=== PATIENT | male | born 1970 | race Caucasian/White ===

== ENCOUNTER 2016-12-19 00:29 | Emergency (ER) | payer SELFPAY ==
[~2016-12-19] VITALS: Ht 188 cm; Wt 125.0 kg
[~2016-12-19 00:29] MED LIST: IBUP-238 PO
[2016-12-19 00:41] VITALS: BP 149/112; PULSE 112; RESP 18; TEMP 98.6; O2SAT 94
[2016-12-19 00:56] VITALS: BP 151/80; PULSE 100; RESP 18; O2SAT 94
[2016-12-19] MEDS ORDERED: BACT800T5 PO (01:40)
[2016-12-19] MEDS ORDERED: DOXY100C PO (01:40)
--- NOTE | 2016-12-19 01:43 | PD ---
HPI Chief Complaint: Skin Problem Time Seen by Provider: :17 Travel History International Travel<30 days: No Contact w/Intl Traveler<30days: No Traveled to known affect area: No History of Present Illness HPI The patient is a 46-year-old male that complains of multiple skin infection "boils" on his back and groin for over week. He really has some all over his body but these are the worst ones. He denies any fever. He denies any history of diabetes. 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 His last tetanus shot was when he was age 19. [facility] Past Medical History Medical History: Denies Significant Hx Diminished Hearing: No Tetanus Vaccination: < 5 Years Influenza Vaccination: No Past Surgical History Abdominal Surgery: Yes (HERNIA REPAIR X 2) Social History Alcohol Use: Yes (OCC) Tobacco Use: Yes (1 PPD) Substance Use: No (DENIES) Allergies-Medications (Allergen,Severity, Reaction): Coded Allergies: No Known Allergies (Verified , 12/19/16) Reported Meds & Prescriptions Reported Meds & Active Scripts Active No Active Prescriptions or Reported Medications Review of Systems Except as stated in HPI: all other systems reviewed are Neg Physical Exam Narrative GENERAL: The patient is alert, oriented 3 in minimal apparent distress with his abscess pain. His vital signs show blood pressure 151/80 with heart rate of 100 and are otherwise normal. SKIN: Focused skin assessment warm/dry. The patient has multiple abscesses. The largest is on the right groin and this is draining without any fluctuance. He also has about 5 to abscesses on his buttocks, none of which are large enough or mature enough to drain. The skin shows on the shoulders and back multiple lesions which appear to be staphylococcal. None of these are requiring incision and drainage. HEAD: Atraumatic. Normocephalic. EYES: Pupils equal and round. No scleral icterus. No injection or drainage. ENT: No nasal bleeding or discharge. Mucous membranes pink and moist. NECK: Trachea midline. No JVD. CARDIOVASCULAR: Regular rate and rhythm. No murmur appreciated. RESPIRATORY: No accessory muscle use. Clear to auscultation. Breath sounds equal bilaterally. GASTROINTESTINAL: Abdomen soft, non-tender, nondistended. Hepatic and splenic margins not palpable. MUSCULOSKELETAL: No obvious deformities. No clubbing. No cyanosis. No edema. NEUROLOGICAL: Awake and alert. No obvious cranial nerve deficits. Motor grossly within normal limits. Normal speech. PSYCHIATRIC: Appropriate mood and affect; insight and judgment normal. Data Data Last Documented VS Vital Signs Date Time Temp Pulse Resp B/P (MAP) Pulse Ox O2 Delivery O2 Flow Rate FiO2 12/19/16 00:56 100 18 151/80 (103) 94 Room Air 12/19/16 00:41 98.6 MDM Medical Decision Making Medical Screen Exam Complete: Yes Emergency Medical Condition: Yes Medical Record Reviewed: Yes Differential Diagnosis MRSA abscesses, cellulitis, allergic reaction Narrative Course The patient has multiple abscesses which are likely caused by MRSA. He will be given both doxycycline and Bactrim DS. Both will be twice daily for 10 days. He is also given a bottle of Betadine so that he can bathe and Betadine and reduce some of his bacteria on the skin. He should soak at least twice daily in warm water the abscess is on the buttocks and groin. Alternatively, he can take a shower and trained the water on these areas. Diagnosis Primary Impression: Abscess of multiple sites Additional Instructions: As we discussed, discontinue alcohol and sit in a tub of warm water at least 30 minutes twice daily so that the abscesses on her buttocks and groin get a good soaking. Use several capfulls of Betadine in the bath water. Both of the antibiotics are taken twice daily for 10 days. Med/Other Pt SpecificInfo: Prescription(s) given Scripts Doxycycline Hyclate (Doxycycline Hyclate) 100 Mg Cap 100 MG PO BID for Infection, #20 CAP 0 Refills Prov: Ignacio Viera MD 12/19/16 Sulfamethoxazole-Trimethoprim (Bactrim DS) 800-160 Mg Tab 1 TAB PO BID for Infection, #20 TAB 0 Refills Prov: Ignacio Viera MD 12/19/16 Disposition: DISCHARGE HOME Condition: Stable Ignacio Viera MD Dec 19, 2016 01:43
[2016-12-19] MEDS ORDERED: TETANUS/DIPHTHERIA TOXOID ADULT 0.5 ML VIAL IM ONE (01:45)
== END 2016-12-19 02:04 | disposition home or self-care (01) ==
LOC: PHED 00:29
DX: L02.31 Cutaneous abscess of buttock (principal); B95.0 Streptococcus, group A, as the cause of diseases classified elsewhere; F17.200 Nicotine dependence, unspecified, uncomplicated; Z23 Encounter for immunization
CPT/HCPCS: 87070; 90471; 90714

== ENCOUNTER 2017-03-21 23:18 | Emergency (ER) | payer SELFPAY ==
[~2017-03-21] VITALS: Ht 188 cm; Wt 125.0 kg
[~2017-03-21 23:18] MED LIST changes: +BACT800T5 PO; +DOXY100C PO; -IBUP-238 PO
[2017-03-21 23:20] VITALS: BP 149/83; PULSE 114; RESP 18; TEMP 98.4; O2SAT 95
[2017-03-21] MEDS ORDERED: LIDOCAINE 2%/EPINEPHrine 1:100,000 20ML MDV NERV BLOCK ONE (23:45)
[2017-03-21] MEDS ORDERED: LIDOCAINE 1%/EPINEPHrine 1:100,000 SOLN 50 ML VIAL INFIL ONE (23:45)
--- NOTE | 2017-03-21 23:47 | PD ---
HPI . Foot pain Chief Complaint: Injury Time Seen by Provider: 23:29 Travel History International Travel<30 days: No Contact w/Intl Traveler<30days: No Traveled to known affect area: No History of Present Illness HPI This patient presents with left foot pain for the last 5 months. He states that he presents to us about it tonight because he spent the day at [employer] and it is very painful tonight. He states that he has treated it at home with a plantar wart removal system. He rates the pain 10/10. PFSH Past Medical History Diminished Hearing: No Past Surgical History Abdominal Surgery: Yes (HERNIA REPAIR X 2) Social History Alcohol Use: Yes (OCC) Tobacco Use: Yes (1 PPD) Substance Use: No (DENIES) Allergies-Medications (Allergen,Severity, Reaction): Coded Allergies: No Known Allergies (Verified Adverse Reaction, Unknown, 03/21/17) Reported Meds & Prescriptions Reported Meds & Active Scripts Active No Active Prescriptions or Reported Medications Review of Systems Except as stated in HPI: all other systems reviewed are Neg Physical Exam Narrative GENERAL: Awake and alert and in no acute distress. SKIN: Warm and dry. He has an area of hyperkeratotic skin on the plantar aspect of the left foot near the fifth MTP joint. HEAD: Normocephalic/atraumatic. EYES: Pupils are equal. Extraocular movements are intact. NECK: Normal range of motion. CARDIOVASCULAR: Regular rate and rhythm. RESPIRATORY: Nonlabored respirations. MUSCULOSKELETAL: Atraumatic. NEUROLOGICAL: Nonfocal. PSYCHIATRIC: Appropriate mood and affect. Data Data Last Documented VS Vital Signs Date Time Temp Pulse Resp B/P (MAP) Pulse Ox O2 Delivery O2 Flow Rate FiO2 03/21/17 23:43 Room Air 03/21/17 23:20 98.4 114 18 149/83 (105) 95 Orders Orders Lidocai-Epi 2%-1:100,000 Inj (Xylocaine- (03/21/17 23:45) Lidocai-Epi 1%-1:100,000 Inj (Xylocaine- (03/21/17 23:45) MDM Medical Decision Making Medical Screen Exam Complete: Yes Emergency Medical Condition: Yes Differential Diagnosis Differential diagnosis includes callus versus plantar wart Narrative Course This patient presents with a painful lesion on the plantar aspect of his left foot. I will anesthetize the area and core it out. Procedures Procedure Narrative The area was prepped with rubbing alcohol then also anesthetized with 2 % lidocaine with epi. The area of hyperkeratinized skin was then excised using a #11 blade and a cone like fashion. He tolerated the procedure well without complication. Diagnosis Primary Impression: Plantar wart of left foot Referrals: Joaquin Colorado DPM Patient Instructions: General Instructions, Plantar Wart (DC) Scripts No Active Prescriptions or Reported Meds Disposition: 01 DISCHARGE HOME Condition: Stable Cindy Brown MD Mar 21, 2017 23:47
== END 2017-03-22 00:09 | disposition home or self-care (01) ==
LOC: NEPD 23:18
DX: B07.0 Plantar wart (principal); F17.200 Nicotine dependence, unspecified, uncomplicated
CPT/HCPCS: 17110

== ENCOUNTER 2017-06-19 06:45 | Emergency (ER) | payer SELFPAY ==
[~2017-06-19] VITALS: Ht 195.6 cm; Wt 104.5 kg
[2017-06-19 06:55] VITALS: BP 139/81; PULSE 102; RESP 16; TEMP 97.9; O2SAT 95
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
[2017-06-19] MEDS ORDERED: KETOROLAC TROMETHAMINE 60 MG/2 ML (IM) VIAL IM ONE (07:15)
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
[2017-06-19] MEDS ORDERED: AUGM500T7 PO (08:49)
[2017-06-19 09:55] VITALS: BP 129/79; PULSE 94; RESP 14; O2SAT 100
== END 2017-06-19 09:55 | disposition home or self-care (01) ==
LOC: PHED 06:45
DX: S02.32XA Fracture of orbital floor, left side, initial encounter for closed fracture (principal); S02.2XXA Fracture of nasal bones, initial encounter for closed fracture; F10.129 Alcohol abuse with intoxication, unspecified; F17.200 Nicotine dependence, unspecified, uncomplicated; Y04.2XXA Assault by strike against or bumped into by another person, initial encounter
CPT/HCPCS: 70450; 70486; 96372; 99285; J1885

== ENCOUNTER 2017-07-11 00:32 | Emergency (ER) | payer SELFPAY ==
[~2017-07-11 00:32] MED LIST changes: +AUGM500T7 PO; -BACT800T5 PO; -DOXY100C PO
[2017-07-11 00:35] VITALS: BP 142/93; PULSE 111; RESP 18; TEMP 97.3; O2SAT 96
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
[2017-07-11] MEDS ORDERED: PROPARACAINE HCL 0.5% OPHT SOLN 15 ML BTL EACH EYE ONE (01:15)
== END 2017-07-11 01:56 | disposition home or self-care (01) ==
LOC: NEPD 00:32
DX: H57.12 Ocular pain, left eye (principal); F17.200 Nicotine dependence, unspecified, uncomplicated
CPT/HCPCS: 99283

== ENCOUNTER 2017-11-02 22:13 | Inpatient (IN) ==
[2017-11-02] MEDS ORDERED: Morphine Sulfate Inj 8 MG/ML Vial IV.PUSH ONE (23:40)
[2017-11-02] MEDS ORDERED: SOD CHLORIDE 0.9% IV.SIG SCH (23:45)
[2017-11-02] MEDS ORDERED: Sod Chloride 0.9% Inj 1,000 ML IV.SIG SCH ×3 (23:45)
[2017-11-03 00:21] LABS: Baso % (Auto) 0.1 % (0.0-2.0); Eos # (Auto) 0.1 th/mm3 (0.0-0.4); Eos % (Auto) 0.3 % (0.0-4.0); Hematocrit 50.2 % (39.0-51.0); Hemoglobin 17.9 gm/dL (13.0-17.0); Lymph # (Auto) 0.7 th/mm3 (1.0-4.8); Lymph % (Auto) 3.9 % (9.0-44.0); Mean Corpuscular HGB Conc 35.6 % (32.0-36.0); Mean Corpuscular Hemoglobin 33.6 pg (27.0-34.0); Mean Corpuscular Volume 94.5 fL (80.0-100.0); Mean Platelet Volume 9.1 fL (7.0-11.0); Mono # (Auto) 0.6 th/mm3 (0.0-0.9); Mono % (Auto) 3.2 % (0.0-8.0); Neut # (Auto) 17.1 th/mm3 (1.8-7.7); Neut % (Auto) 92.5 % (16.0-70.0); Platelet Count 272 th/mm3 (150-450); Red Blood Count 5.32 mil/mm3 (4.50-5.90); Red Cell Distribution Width 13.2 % (11.6-17.2); White Blood Count 18.5 th/mm3 (4.0-11.0)
--- NOTE | 2017-11-03 00:34 | XR ---
EXAM DATE: 11/03/2017 12:13 AM EDT AGE/SEX: 47 years / Male INDICATIONS: Fever for 2 days CLINICAL DATA: This is the patient's initial encounter. Patient reports that signs and symptoms have been present for 2 days and indicates a pain score of 0/10. MEDICAL/SURGICAL HISTORY: None. None. COMPARISON: No prior exams available for comparison. FINDINGS: Portable AP view of the chest demonstrates a normal size cardiac silhouette. Lungs are underinflated with atelectasis at the lung bases. No pleural effusion, airspace consolidation, or pneumothorax is i dentified. There is a questionable 9 mm nodule in the left upper lung zone. The bones and soft tissue s demonstrate no acute abnormality. CONCLUSION: 1. No acute cardiopulmonary abnormality is identified. 2. Questionable 9 mm nodule in the left upper lung zone. If the prior studies cannot be obtained for comparison consider elective follow-up with noncontrast chest CT. Electronically signed by: Baltazar Benedict MD 11/03/2017 12:32 AM EDT
[2017-11-03 00:39] LABS: Chloride 96 meq/L (98-107); Potassium 3.5 meq/L (3.5-5.1); Sodium 132 meq/L (136-145)
[2017-11-03 00:43] LABS: Albumin 3.7 g/dL (3.4-5.0); Anion Gap 11 meq/L (5-15); Calcium 8.7 mg/dL (8.5-10.1); Carbon Dioxide 25.4 meq/L (21.0-32.0); Glucose,Random 154 mg/dL (74-106)
[2017-11-03 00:44] LABS: Blood Urea Nitrogen 10 mg/dL (7-18)
[2017-11-03 00:46] LABS: Alanine Aminotransferase 53 U/L (12-78); Aspartate Aminotransferase 52 U/L (15-37); Glomerular Filtration Rate Greater Than 89 mL/min (>89)
[2017-11-03 00:48] LABS: Total Protein 8.2 g/dL (6.4-8.2)
[2017-11-03 00:49] LABS: Alkaline Phosphatase 101 U/L (45-117); Creatine Kinase 260 U/L (39-308); Lipase 18104 U/L (73-393)
[2017-11-03 01:02] LABS: Creatine Kinase MB 1.5 ng/mL (0.5-3.6)
[2017-11-03] MEDS ORDERED: Morphine Inj 4 MG, Morphine Inj 2 MG IV.PUSH ONE ×2 (01:12)
[2017-11-03] MEDS ORDERED: Piperacil/Tazo 4.5 GM Premix 4.5 GM/100 ML BAG IV.SIG ONE (01:14)
--- NOTE | 2017-11-03 01:15 | ED ---
HPI General Chief Complaint: Abdominal Pain Stated Complaint: abd pain/vomiting Time Seen by Provider: 11/02/17 22:40 Source: patient Mode of arrival: ambulatory Limitations: no limitations History of Present Illness HPI narrative: 47-year-old male who presents with several days of increasing generalized abdominal pain. Per his report it started periumbilical region and has since generalized throughout his abdomen. The pain is so bad that he holds his abdominal musculature very rigid. He denies shortness of breath or chest pain. No fevers or chills at home. Very nauseated with multiple episodes of emesis today up to 6 per his count. No diarrhea, no blood in stool, no dark tarry stools. He is unable to tolerate any liquids or food today. Patient denies alcohol or drug use. No prior history of pancreatitis. MD complaint: abdominal pain Onset (ago): day(s) Pain Consistency: constant Location: diffuse Severity: severe Severity scale (1-10): 10 Quality: cramping and stabbing Relieving factors: nothing Exacerbating factors: movement Associated symptoms: nausea and vomiting Related Data Home Medications Medication Instructions Recorded Confirmed No Known Home Medications 10/15/17 11/02/17 Allergies Allergy/AdvReac Type Severity Reaction Status Date / Time No Known Allergies Allergy Verified 11/02/17 22:18 Review of Systems ROS: all other systems reviewed are negative Constitutional Denies chills and Denies fever(s) Gastrointestinal Reports abdominal pain, Denies melena, Reports cramping, Denies loose stools, Reports nausea and Reports vomiting PMFSH Medical History Medical History Patient denies medical problems (Acute) Surgical History Surgical History History of hernia surgery (Acute) Social History Social History Substance History: No History of Abuse Smoking Status: Current every day smoker Tobacco Type: Cigarettes How Often Do You Have a Drink Containing Alcohol: 4 or more times a week Recent Travel in [facility] within the Last 8 Weeks: No Recent Out of Country Travel within the Last 8 Weeks: No Immunization History Tetanus Immunization: <5 Years Hx Influenza Vaccine This Season: No Exam Narrative Exam Narrative: GENERAL: 47-year-old obese male sitting upright on stretcher with wet towels draped on back of neck appears in moderate distress from discomfort. SKIN: Focused skin assessment warm/dry. No rash. No periumbilical or flank bruising. HEAD: Atraumatic. Normocephalic. EYES: Pupils equal and round. No scleral icterus. No injection or drainage. ENT: No nasal bleeding or discharge. Mucous membranes pink and moist. NECK: Trachea midline. No JVD. CARDIOVASCULAR: Tachycardic rate and normal rhythm. No murmur appreciated. RESPIRATORY: No accessory muscle use. Clear to auscultation. Breath sounds equal bilaterally. GASTROINTESTINAL: Generalized abdominal tenderness with involuntary guarding, no rebound tenderness, no palpable hernia. Hepatic and splenic margins not palpable. MUSCULOSKELETAL: No obvious deformities. No clubbing. No cyanosis. No edema. NEUROLOGICAL: Awake and alert. No obvious cranial nerve deficits. Motor grossly within normal limits. Normal speech. PSYCHIATRIC: Appropriate mood and affect; insight and judgment normal. Course Reevaluation(s) Reevaluation #1: Reevaluated patient at this time his pain is significantly improved but returning at this time and he request a second dose of morphine which I ordered for him. His heart rate is improved compared to arrival is now 136 bpm versus 150 in triage. Although patient is hesitant to be admitted I advised him it is the best course of action given his persistently elevated heart rate and his biochemically obvious pancreatitis; I told him that pancreatitis has the potential for significant adverse consequences if not addressed. He agrees and will sent to admission. He is still pending CT abdomen pelvis. Due to elevated lactic acid I will provide him a 30 cc a kilogram bolus of normal saline as per sepsis protocol. Will also cover with 1 dose of Zosyn in the ED. However believe that sepsis and/or bacteremia is less likely than acute pancreatitis with early SIRS. Time: 12:46 Reevaluation #2: Conferred with patient's bedside nurse and charge nurse regarding the care of this patient. Explained to them that due to his elevated lactic acid we will need to give the patient the entire 30 cc a kilo bolus as per [facility] sepsis protocol. Told them that it would be okay to slow the rate of the remaining fluid. Also fixed order for 6 mg IV morphine which was erroneously ordered as a split order. Patient is still awaiting CT. At this time the PACS system is down for radiology and therefore reads are Time: 01:30 Reevaluation #3: Patient is resting quietly in dark room at time of re- evaluation. His pain is well controlled at this time. Heart rate is improving and is now 125 BPM. Patient remains normotensive. Page out to hospitalist for admission. Time: 03:05 Initial Documented Vital Signs Temperature 98 F 11/02/17 22:18 Pulse Rate 150 H 11/02/17 22:18 Respiratory Rate 20 11/02/17 22:18 Blood Pressure 165/105 H 11/02/17 22:18 Pulse Oximetry 100 11/02/17 22:18 Last Documented Vital Signs Temperature 98 F 11/02/17 22:18 Pulse Rate 118 H 11/03/17 07:17 Respiratory Rate 18 11/03/17 07:17 Blood Pressure 140/80 11/03/17 07:17 Pulse Oximetry 93 L 11/03/17 07:17 Critical Care Time Critical Care Time: Yes Total Critical Care Time: 45 Attestation: Time necessary for treatment of severe pancreatitis. Patient exhibiting signs of early shock as evidenced by persistently high rate of tachycardia. This is most likely signs of early SIRS secondary to his pancreatitis. My constant attention and close care was necessary for treatment of this critically ill patient. Aggregate critical care time was 45 minutes. Time to perform other separately billable procedures was not included in the critical care time. My time did not include minutes spent treating any other patients simultaneously or on activities that did not directly contribute to the patient's treatment. The services I provided to this patient were to treat and/or prevent clinically significant deterioration that could result in: Worsening shock, circulatory collapse, sepsis, endocrine disorder. I provided critical care services requiring my management, as noted below: Chart data review, documentation time, medication orders and management, vital sign assessments/reviewing monitor data, ordering and reviewing lab tests, ordering and interpreting/reviewing x-rays and diagnostic studies, care of the patient and discussion of the patient with the admitting physicians. Medical Decision Making MDM Narrative Medical decision making narrative: Patient presents with signs and symptoms of peritonitis, chiefly involuntary guarding on exam and generalized abdominal tenderness. He also has a fast rate of sinus tachycardia; I will attempt to volume replete the patient with normal saline boluses as I believe his tachycardia is a sign of early shock. The likely etiology is pancreatitis or intra-abdominal infection. Though he is afebrile, bacteremia or sepsis is a possible cause of his signs and symptoms and therefore will treat patient has sepsis alert. We will give initial dose of IV Zosyn in ED for broad coverage that includes gut pathogens, gram-negative organisms and anaerobes. Also consider aortic dissection or ruptured AAA, although I believe these are less likely pancreatitis or intra-abdominal infection. Differential Diagnosis Differential Diagnosis: Pancreatitis versus early shock versus perforated viscus versus GI bleed versus bacteremia versus sepsis of unknown etiology versus ruptured AAA (less likely) versus aortic dissection (less likely) versus ACS (unlikely). Medical Records Medical records reviewed: Yes I reviewed the patient's medical records. Lab Data Lab results reviewed: Yes I reviewed the patient's lab results. Lab results narrative: Lab results consistent with acute pancreatitis white count elevation may be reactive but in the setting could very well also be a sign of infection. Glucose is moderately elevated which is fitting with pancreatitis but is also also a possible the patient has untreated type 2 diabetes. His lactic acid is moderately elevated and therefore we will plan to recheck after fluid bolus. Will order patient 30 cc a kilogram bolus of normal saline per centimeter mass sepsis guideline. Result diagrams: 11/02/17 00:00 11/02/17 00:00 Lab Results 11/02/17 11/02/17 11/02/17 Range/Units 00:00 00:00 00:00 CBC w Diff Slide review pending WBC 18.5 H (4.0-11.0) th/mm3 RBC 5.32 (4.50-5.90) mil/mm3 Hgb 17.9 H (13.0-17.0) gm/dL Hct 50.2 (39.0-51.0) % MCV 94.5 (80.0-100.0) fL MCH 33.6 (27.0-34.0) pg MCHC 35.6 (32.0-36.0) % RDW 13.2 (11.6-17.2) % Plt Count 272 (150-450) th/mm3 MPV 9.1 (7.0-11.0) fL Neut % (Auto) 92.5 H (16.0-70.0) % Lymph % (Auto) 3.9 L (9.0-44.0) % [place] % (Auto) 3.2 (0.0-8.0) % Eos % (Auto) 0.3 (0.0-4.0) % Baso % (Auto) 0.1 (0.0-2.0) % Neut # (Auto) 17.1 H (1.8-7.7) th/mm3 Lymph # (Auto) 0.7 L (1.0-4.8) th/mm3 [place] # (Auto) 0.6 (0.0-0.9) th/mm3 Eos # (Auto) 0.1 (0.0-0.4) th/mm3 Baso # (Auto) 0.0 (0.0-0.2) th/mm3 WBC Differential . Diff Scan Auto diff confirmed Differential Comment . Sodium 132 L (136-145) meq/L Potassium 3.5 (3.5-5.1) meq/L Chloride 96 L (98-107) meq/L Carbon Dioxide 25.4 (21.0-32.0) meq/L Anion Gap 11 (5-15) meq/L BUN 10 (7-18) mg/dL Creatinine 0.71 (0.60-1.30) mg/dL Estimated GFR Greater than 89 (>89) mL/min POC Glucose (68-110) mg/dl Random Glucose 154 H (74-106) mg/dL Lactic Acid 2.5 H (0.4-2.0) mmol/L Calcium 8.7 (8.5-10.1) mg/dL Total Bilirubin 1.3 H (0.2-1.0) mg/dL AST 52 H (15-37) U/L ALT 53 (12-78) U/L Alkaline Phosphatase 101 (45-117) U/L Total Creatine Kinase 260 (39-308) U/L CK-MB (CK-2) 1.5 (0.5-3.6) ng/mL Troponin I Less than 0.02 L (0.02-0.05) ng/mL Total Protein 8.2 (6.4-8.2) g/dL Albumin 3.7 (3.4-5.0) g/dL Lipase 47436 H (73-393) U/L Urine Color (Yellw/Straw) Urine Clarity (Clear) Urine pH (5.0-8.5) Ur Specific Stanley (1.002-1.035) Urine Protein (Neg-Trace) mg/dL Urine Glucose (UA) (Negative) mg/dL Urine Ketones (Negative) mg/dL Urine Occult Blood (Negative) Urine Nitrate (Negative) Urine Bilirubin (Negative) Urine Urobilinogen (Less than 2) mg/dL Ur Leukocyte Esterase (Negative) Urine RBC (0-3) /hpf Urine WBC (0-5) /hpf Ur Squamous Epith Cells (0-5) /hpf Micro UA Comment Urine Culture Comments 11/03/17 11/03/17 11/03/17 Range/Units 01:43 03:40 05:50 CBC w Diff WBC (4.0-11.0) th/mm3 RBC (4.50-5.90) mil/mm3 Hgb (13.0-17.0) gm/dL Hct (39.0-51.0) % MCV (80.0-100.0) fL MCH (27.0-34.0) pg MCHC (32.0-36.0) % RDW (11.6-17.2) % Plt Count (150-450) th/mm3 MPV (7.0-11.0) fL Neut % (Auto) (16.0-70.0) % Lymph % (Auto) (9.0-44.0) % [place] % (Auto) (0.0-8.0) % Eos % (Auto) (0.0-4.0) % Baso % (Auto) (0.0-2.0) % Neut # (Auto) (1.8-7.7) th/mm3 Lymph # (Auto) (1.0-4.8) th/mm3 [place] # (Auto) (0.0-0.9) th/mm3 Eos # (Auto) (0.0-0.4) th/mm3 Baso # (Auto) (0.0-0.2) th/mm3 WBC Differential Diff Scan Differential Comment Sodium (136-145) meq/L Potassium (3.5-5.1) meq/L Chloride (98-107) meq/L Carbon Dioxide (21.0-32.0) meq/L Anion Gap (5-15) meq/L BUN (7-18) mg/dL Creatinine (0.60-1.30) mg/dL Estimated GFR (>89) mL/min POC Glucose 152 H (68-110) mg/dl Random Glucose (74-106) mg/dL Lactic Acid 1.3 (0.4-2.0) mmol/L Calcium (8.5-10.1) mg/dL Total Bilirubin (0.2-1.0) mg/dL AST (15-37) U/L ALT (12-78) U/L Alkaline Phosphatase (45-117) U/L Total Creatine Kinase (39-308) U/L CK-MB (CK-2) (0.5-3.6) ng/mL Troponin I (0.02-0.05) ng/mL Total Protein (6.4-8.2) g/dL Albumin (3.4-5.0) g/dL Lipase (73-393) U/L Urine Color Wilkin H (Yellw/Straw) Urine Clarity Slightly cloudy (Clear) Urine pH 6.0 (5.0-8.5) Ur Specific Stanley Less/equal 1.005 (1.002-1.035) Urine Protein 100 H (Neg-Trace) mg/dL Urine Glucose (UA) Negative (Negative) mg/dL Urine Ketones Negative (Negative) mg/dL Urine Occult Blood Trace (Negative) Urine Nitrate Negative (Negative) Urine Bilirubin Negative (Negative) Urine Urobilinogen 0.2 (Less than 2) mg/dL Ur Leukocyte Esterase Negative (Negative) Urine RBC 0-3 (0-3) /hpf Urine WBC 0-5 (0-5) /hpf Ur Squamous Epith Cells 0-5 (0-5) /hpf Micro UA Comment Culture not ind Urine Culture Comments Culture not ind Imaging Data Radiologist's impression: Chest X-Ray 11/02/17 23:43 CONCLUSION: 1. No acute cardiopulmonary abnormality is identified. 2. Questionable 9 mm nodule in the left upper lung zone. If the prior studies cannot be obtained for comparison consider elective follow-up with noncontrast chest CT. Abdomen/Pelvis CT 11/03/17 00:37 CONCLUSION: 1. Peripancreatic inflammatory changes which extend into the small bowel mesentery. There is also a small volume of free fluid in the pelvis. These findings are characteristic of acute pancreatitis. Suggest correlating with appropriate laboratory values. There are no pancreatitis associated complications currently. 2. Hepatomegaly with steatosis. Discharge Plan Discharge Disposition Patient Disposition: 30 Still Patient Physicians Team ED Provider: Juan Silva Primary Care Provider: Primary Care Hali Ortez Attending Provider: Marbella Zavaleta Status ED Status: Admitted Patient
[2017-11-03] MEDS ORDERED: Morphine Sulfate Inj 8 MG/ML Vial IV.PUSH ONE (01:30)
--- NOTE | 2017-11-03 02:27 | CT ---
EXAM DATE: 11/03/2017 2:17 AM EDT AGE/SEX: 47 years / Male INDICATIONS: Diffuse abdominal pain with vomiting. CLINICAL DATA: This is the patient's subsequent encounter. Patient reports that signs and symptoms h ave been present for 2 days and indicates a pain score of 5/10. MEDICAL/SURGICAL HISTORY: None. . Hernia surgery. ORAL CONTRAST: No oral contrast ingested. RADIATION DOSE: 21.70 CTDI (mGy) COMPARISON: No prior exams available for comparison. TECHNIQUE: Multiple contiguous axial images were obtained through the abdomen and pelvis following b olus infusion of 80 ml Omnipaque 350 (iohexol) nonionic water-soluble contrast as a single exam dos e. No oral contrast ingested. Using automated exposure control and adjustment of the mA and/or kV ac cording to patient size, radiation dose was kept as low as reasonably achievable to obtain optimal di agnostic quality images. DICOM format image data is available electronically for review and comparis on. FINDINGS: Lower chest: There is atelectasis at the left lung base. Hepatobiliary: Liver density indicates steatosis. The liver is enlarged measuring 24.9 cm in length. No focal liver lesion is identified. Hepatic vasculature is within normal limits. No calcified gallst ones are present. Kidneys: No hydronephrosis, stone, or mass. Adrenal Glands: Within normal limits. Spleen: Within normal limits. Pancreas: There are peripancreatic inflammatory changes. No pancreas necrosis is present. There is no ductal dilatation or solid mass identified. Vascular: The aorta is nonaneurysmal. There is moderate atherosclerotic disease. Bowel/Mesentery: Stomach and small bowel demonstrates no acute finding. No colon abnormality is seen. There is a small volume of free fluid in the pelvis with inflammatory changes in the small bowel mes entery. No free air is present. Abdominal Wall: No hernia is visualized. Retroperitoneum: No lymphadenopathy. Bladder: No wall thickening or mass. Reproductive: No acute abnormality. Inguinal: No lymphadenopathy or hernia. Musculoskeletal: No acute osseous abnormality is identified. There are degenerative changes of the lazarus mbar spine. CONCLUSION: 1. Peripancreatic inflammatory changes which extend into the small bowel mesentery. There is also a small volume of free fluid in the pelvis. These findings are characteristic of acute pancreatitis. Peter ggest correlating with appropriate laboratory values. There are no pancreatitis associated complicati ons currently. 2. Hepatomegaly with steatosis. Electronically signed by: Baltazar Benedict MD 11/03/2017 2:26 AM EDT
[2017-11-03 03:51] LABS: Bilirubin,Urine Negative (Negative); Clarity,Urine Slightly Cloudy (Clear); Glucose,Urine (UA) Negative (Negative); Leukocyte Esterase,Urine Negative (Negative); Nitrite,Urine Negative (Negative); Specific Gravity,Urine Less/Equal 1.005 (1.002-1.035); Urobilinogen,Urine 0.2 mg/dL (Less than 2)
[2017-11-03 03:54] LABS: Color,Urine Orange (Yellw/Straw)
[2017-11-03 03:57] LABS: Squamous Epithelial Cell,Urine 0-5 /hpf (0-5); WBC,Urine 0-5 /hpf (0-5)
[2017-11-03 03:58] LABS: RBC,Urine 0-3 /hpf (0-3)
[2017-11-03] MEDS: Morphine Sulfate Inj 8 MG/ML Vial IV.PUSH PRN ×4 (05:29→16:19)
--- NOTE | 2017-11-03 09:14 | P.HPIM ---
History of Present Illness Primary Care Physician: No Primary Care Physician Chief Complaint: Nausea and vomiting and abdominal pain History of Present Illness: Patient is a 47-year-old gentleman who drinks quite a bit of liquor daily who comes in with severe abdominal pain located in the periumbilical and lower abdomen. It does not seem to radiate. He cannot keep any food or liquids down and finally came to the emergency room for further evaluation and treatment. Patient drinks hard liquor at least every night and has never had any abdominal. The emergency room he is noted to be tachycardic and complaining of 8 out of 10 pain relieved with IV narcotics. Patient is found to have a leukocytosis of 18,000 as well as a lipase of 18,[address] abdomen pelvis which shows patient extending to the small bowel mesentery. This time patient has been recommended for further evaluation and treatment in the hospital due to acute pancreatitis with inability to swallow secondary to severe nausea and vomiting. - Diagnosis (1) Pancreatitis Inpatient Certification: I certify that the inpatient services were ordered in accordance with Medicare regulations governing the order. This includes certification that hospital inpatient services are reasonable and necessary and in the case of services not specified as inpatient-only under 42 CFR 419.22(n), that they are appropriately provided as inpatient services in accordance to with the 2-midnight benchmark under 43 CFR 412.3(e) Estimated Total Length of Stay (Days): 2 Plans for Post Hospital Care: Not yet determined Review of Systems All other systems reviewed negative except as stated [facility] - History History Provided By: Patient - Medical History Medical History: Medical History (Last Reviewed 11/03/17 @ 09:13 by Marbella Zavaleta MD) Patient denies medical problems - Surgical History Surgical History: Surgical History (Last Reviewed 11/03/17 @ 09:13 by Marbella Zavaleta MD) History of hernia surgery - Family History Family History: Family History (Last Updated 11/03/17 @ 09:13 by Marbella Zavaleta MD) Other No family history of disorders - Tobacco History Tobacco Use In Past 30 Days: Yes Smoking Status: Current every day smoker (Pack a day for 20 years) Tobacco Type: Cigarettes - Alcohol History How Often Do You Have a Drink Containing Alcohol: 4 or more times a week (Hard liquor half a pint daily) - Substance Use History Substance History: No History of Abuse - Travel History Recent Travel in the [facility] Within the Last 8 Weeks: No Recent Travel Out of the Country Within the Last 8 Weeks: No - Immunization History Tetanus Immunization: <5 Years Hx Influenza Vaccine This Season: No Medications and Allergies Active Medications: Active Medications Sodium Chloride (Ns Inj) 1,000 mls @ 0 mls/hr IV.SIG .Q0M TOHR Last Infusion: 11/03/17 01:27 Dose: Infused Sodium Chloride (Ns Inj) 1,000 mls @ 0 mls/hr IV.SIG .Q0M THOR Last Infusion: 11/03/17 02:28 Dose: Infused Sodium Chloride (Ns Inj) 1,000 mls @ 0 mls/hr IV.SIG .Q0M THOR Last Infusion: 11/03/17 03:30 Dose: Infused Sodium Chloride (Ns Inj) 900 mls @ 0 mls/hr IV.SIG .Q0M THOR Lactated Ringer's (Lr 1000 Ml Inj) 1,000 mls @ 200 mls/hr IV.CONT .Q5H THOR Last Infusion: 11/03/17 08:45 Dose: Infused Morphine Sulfate (Morphine Inj) 5 mg IV.PUSH Q3H PRN PRN Reason: pain 6-10 Last Admin: 11/03/17 08:51 Dose: 5 mg Ondansetron HCl (Zofran Inj) 4 mg IV.PUSH Q6H PRN PRN Reason: NAUSEA OR VOMITING Sodium Chloride (Ns Flush) 2 ml IV.FLUSH PRN PRN PRN Reason: FLUSH AFTER USING IV ACCESS Sodium Chloride (Ns Flush) 2 ml IV.FLUSH BID THOR Sodium Chloride (Ns Flush) 2 ml IV.FLUSH PRN PRN PRN Reason: FLUSH AFTER USING IV ACCESS Allergies Allergy/AdvReac Type Severity Reaction Status Date / Time No Known Allergies Allergy Verified 11/02/17 22:18 Home Medications Medication Instructions Recorded Confirmed Type No Known Home Medications 10/15/17 11/02/17 History Exam Vital signs: Vital Signs 11/02/17 22:18 11/02/17 23:40 11/03/17 01:30 Temperature 98 F Pulse Rate 150 H 123 H Respiratory Rate 20 18 Blood Pressure 165/105 H 148/70 H Pulse Oximetry 100 95 94 L 11/03/17 03:40 11/03/17 07:17 Temperature Pulse Rate 119 H 118 H Respiratory Rate 18 18 Blood Pressure 148/83 H 140/80 Pulse Oximetry 93 L 93 L Intake & Output 11/02/17 11/03/17 11/03/17 18:59 06:59 18:59 Intake Total 5900 / 5900 1000 / 1000 Output Total 375 / 375 Balance 5525 / 5525 1000 / 1000 Weight 133.1 kg Intake: IV 3000 / 3000 1000 / 1000 LR 1000 mL Inj 1,000 ML @ 200 1000 / 1000 mls/hr IV.CONT .Q5H THOR Rx#: [id number] Zosyn 4.5 GM Premix 4.5 gm In 100 / 100 100 ml @ 200 mls/hr IV.SIG ONCE ONE Rx#:[id number] NS Inj 1,000 ML @ Wide Open IV. 2900 / 2900 SIG .Q0M THOR Rx#:[id number] Other 2900 / 2900 Output: Urine 375 / 375 Other: Other Intake Source Saline Solution # Voids 1 Narrative: GENERAL: Well-nourished, well-developed patient. Complaining of abdominal pain SKIN: Warm and dry. Diffuse to Pan ectasias HEAD: Normocephalic. EYES: No scleral icterus. No injection or drainage. NECK: Supple, trachea midline. No JVD or lymphadenopathy. CARDIOVASCULAR: Sinus tachycardia without murmurs, gallops, or rubs. RESPIRATORY: Breath sounds equal bilaterally. No accessory muscle use. GASTROINTESTINAL: Abdomen soft, tender to in the lower abdomen and distended with hypoactive bowel sounds MUSCULOSKELETAL: No cyanosis, or edema. BACK: Nontender without obvious deformity. No CVA tenderness. NEUROLOGICAL: Awake and alert. Cranial nerves II through XII intact. Motor and sensory grossly within normal limits. Five out of 5 muscle strength in all muscle groups. Normal speech. Results - Labs CBC & Chem 7: 11/02/17 00:00 11/02/17 00:00 Labs: Short CBC 11/02/17 Range/Units 00:00 WBC 18.5 H (4.0-11.0) th/mm3 Hgb 17.9 H (13.0-17.0) gm/dL Hct 50.2 (39.0-51.0) % Plt Count 272 (150-450) th/mm3 BMP 11/02/17 00:00 Sodium 132 L Potassium 3.5 Chloride 96 L Carbon Dioxide 25.4 BUN 10 Creatinine 0.71 Calcium 8.7 Cardiac Enzymes 11/02/17 Range/Units 00:00 Total Creatine Kinase 260 (39-308) U/L CK-MB (CK-2) 1.5 (0.5-3.6) ng/mL Troponin I Less than 0.02 L (0.02-0.05) ng/mL Liver Function 11/02/17 Range/Units 00:00 Total Bilirubin 1.3 H (0.2-1.0) mg/dL AST 52 H (15-37) U/L ALT 53 (12-78) U/L Alkaline Phosphatase 101 (45-117) U/L Albumin 3.7 (3.4-5.0) g/dL Urine 11/03/17 Range/Units 03:40 Urine Color [place] H (Yellw/Straw) Urine Clarity Slightly cloudy (Clear) Urine pH 6.0 (5.0-8.5) Ur Specific [place] Less/equal 1.005 (1.002-1.035) Urine Protein 100 H (Neg-Trace) mg/dL Urine Glucose (UA) Negative (Negative) mg/dL - Imaging Impressions Chest X-Ray 11/02/17 23:43 CONCLUSION: 1. No acute cardiopulmonary abnormality is identified. 2. Questionable 9 mm nodule in the left upper lung zone. If the prior studies cannot be obtained for comparison consider elective follow-up with noncontrast chest CT. Abdomen/Pelvis CT 11/03/17 00:37 CONCLUSION: 1. Peripancreatic inflammatory changes which extend into the small bowel mesentery. There is also a small volume of free fluid in the pelvis. These findings are characteristic of acute pancreatitis. Suggest correlating with appropriate laboratory values. There are no pancreatitis associated complications currently. 2. Hepatomegaly with steatosis. Caprini VTE Risk Assessment Caprini VTE Risk Assessment: No/Low Risk (score <= 1) Caprini Risk Assessment Model: Point Value = 1 Point Value = 2 Point Value = 3 Point Value = 5 Age 41-60 Minor surgery BMI > 25 kg/m2 Swollen legs Varicose veins or History of unexplained or recurrent spontaneous Oral contraceptives or hormone replacement Sepsis (< 1 month) Serious lung disease, including pneumonia (< 1 month) Abnormal pulmonary function Acute myocardial infarction Congestive heart failure (< 1 month) History of inflammatory bowel disease Medical patient at bed rest Age 61-74 Arthroscopic surgery Major open surgery (> 45 min) Laparoscopic surgery (> 45 min) Malignancy Confined to bed (> 72 hours) Immobilizing plaster cast Central venous access Age >= 75 History of VTE Family history of VTE Factor V Leiden Prothrombin 50605H Lupus anticoagulant Anticardiolipin antibodies Elevated serum homocysteine Heparin-induced thrombocytopenia Other congenital or acquired thrombophilia Stroke (< 1 month) Elective arthroplasty Hip, pelvis, or leg fracture Acute spinal cord injury (< 1 month) Prophylaxis Regimen: Total Risk Factor Score Risk Level Prophylaxis Regimen 0-1 Low Early ambulation 2 Moderate Order ONE of the following: *Sequential Compression Device (SCD) *Heparin 5000 units SQ BID 3-4 Higher Order ONE of the following medications: *Heparin 5000 units SQ TID *Enoxaparin/Lovenox 40 mg SQ daily (WT < 150 kg, CrCl > 30 mL/min) *Enoxaparin/Lovenox 30 mg SQ daily (WT < 150 kg, CrCl > 10-29 mL/min) *Enoxaparin/Lovenox 30 mg SQ BID (WT < 150 kg, CrCl > 30 mL/min) AND/OR *Sequential Compression Device (SCD) 5 or more Highest Order ONE of the following medications: *Heparin 5000 units SQ TID (Preferred with Epidurals) *Enoxaparin/Lovenox 40 mg SQ daily (WT < 150 kg, CrCl > 30 mL/min) *Enoxaparin/Lovenox 30 mg SQ daily (WT < 150 kg, CrCl > 10-29 mL/min) *Enoxaparin/Lovenox 30 mg SQ BID (WT < 150 kg, CrCl > 30 mL/min) AND *Sequential Compression Device (SCD) Assessment and Plan - Assessment (1) Pancreatitis Code(s): K85.90 - Acute pancreatitis without necrosis or infection, unspecified Status: Acute Plan: Likely due to alcohol Evidence of sepsis secondary to tachycardia, leukocytosis and elevated lactic acid, continue with IV hydration at this time Bowel rest IV morphine as needed for pain and IV antiemetics
[2017-11-03 09:32] LABS: Baso # (Auto) 0.2 th/mm3 (0.0-0.2); Eos # (Auto) 0.1 th/mm3 (0.0-0.4); Eos % (Auto) 0.7 % (0.0-4.0); Hematocrit 47.3 % (39.0-51.0); Hemoglobin 15.9 gm/dL (13.0-17.0); Lymph # (Auto) 1.1 th/mm3 (1.0-4.8); Lymph % (Auto) 6.1 % (9.0-44.0); Mean Corpuscular HGB Conc 33.6 % (32.0-36.0); Mean Corpuscular Hemoglobin 32.5 pg (27.0-34.0); Mean Corpuscular Volume 96.9 fL (80.0-100.0); Mean Platelet Volume 7.7 fL (7.0-11.0); Mono # (Auto) 0.3 th/mm3 (0.0-0.9); Mono % (Auto) 1.8 % (0.0-8.0); Neut # (Auto) 16.9 th/mm3 (1.8-7.7); Neut % (Auto) 90.4 % (16.0-70.0); Platelet Count 233 th/mm3 (150-450); Red Blood Count 4.89 mil/mm3 (4.50-5.90); Red Cell Distribution Width 12.7 % (11.6-17.2); White Blood Count 18.6 th/mm3 (4.0-11.0)
[2017-11-03 10:02] LABS: Chloride 103 meq/L (98-107); Potassium 3.5 meq/L (3.5-5.1); Sodium 137 meq/L (136-145)
[2017-11-03 10:37] LABS: Anion Gap 5 meq/L (5-15); Blood Urea Nitrogen 8 mg/dL (7-18); Glomerular Filtration Rate Greater Than 89 mL/min (>89); Glucose,Random 137 mg/dL (74-106); Lipase 4304 U/L (73-393)
[2017-11-03 11:29] LABS: Total Protein 6.4 g/dL (6.4-8.2)
--- NOTE | 2017-11-03 14:39 | ECG ---
Date Performed: 11/03/2017 Time Performed: 00:09:02 PTAGE: 47 years EKG: SINUS TACHYCARDIA NONSPECIFIC T-WAVE ABNORMALITY ABNORMAL RHYTHM ECG NO PREVIOUS TRACING DOCTOR: Car Quintero Interpretating Date/Time 11/03/2017 14:35:53
[2017-11-03] MEDS ORDERED: Haloperidol Inj 5 MG/ML Ampul IV.PUSH PRN (15:28)
[2017-11-03] MEDS: chlordiazePOXIDE 25 MG Capsule PO SCH ×2 (16:19→21:56)
[2017-11-03] MEDS: LORazepam 1 MG Tablet PO PRN (20:50)
[2017-11-04] MEDS: LORazepam 1 MG Tablet PO PRN ×2 (00:44→09:33)
[2017-11-04] MEDS ORDERED: Morphine Inj 4 MG/ML Vial IV.PUSH ONE (01:45)
[2017-11-04] MEDS ORDERED: Morphine Inj 4 MG/ML Vial IV.PUSH PRN (01:55)
[2017-11-04] MEDS: chlordiazePOXIDE 25 MG Capsule PO SCH ×4 (04:20→20:53)
--- NOTE | 2017-11-04 11:41 | P.PNIM ---
Subjective Interval history: Patient seen and evaluated in follow-up for pancreatitis which is improved. Patient would like to advance his diet. No other issues overnight. Physical Exam Vital signs: Vital Signs 11/03/17 16:00 11/03/17 20:00 11/04/17 00:00 Temperature 98.6 F 99 F 99.7 F H Pulse Rate 98 H 128 H 121 H Respiratory Rate 18 20 20 Blood Pressure 139/95 H 137/76 139/91 H Pulse Oximetry 97 94 L 92 L 11/04/17 07:57 Temperature 100.5 F H Pulse Rate 91 H Respiratory Rate 20 Blood Pressure 133/75 Pulse Oximetry 98 Intake & Output 11/03/17 11/04/17 11/04/17 18:59 06:59 18:59 Intake Total 1999 / 1999 1999 / 1999 1000 / 1000 Output Total 300 / 300 200 / 200 Balance 1700 / 1700 1800 / 1800 1000 / 1000 Weight 133.5 kg 134.1 kg Intake: IV 1999 / 1999 1999 / 1999 1000 / 1000 LR 1000 mL Inj 1,000 ML @ 200 1999 / 1999 1999 / 1999 1000 / 1000 mls/hr IV.CONT .Q5H THOR Rx#: [id number] Output: Urine 300 / 300 200 / 200 Other: # Voids 1 Date of Last Bowel Movement 11/01/17 Weight On Admission 133.5 kg Narrative: GENERAL: Well-nourished, well-developed patient. SKIN: Warm and dry. HEAD: Normocephalic. EYES: No scleral icterus. No injection or drainage. NECK: Supple, trachea midline. No JVD or lymphadenopathy. CARDIOVASCULAR: Regular rate and rhythm without murmurs, gallops, or rubs. RESPIRATORY: Breath sounds equal bilaterally. No accessory muscle use. GASTROINTESTINAL: Abdomen soft, non-tender, nondistended. MUSCULOSKELETAL: No cyanosis, or edema. BACK: Nontender without obvious deformity. No CVA tenderness. NEUROLOGICAL: Awake and alert. Cranial nerves II through XII intact. Motor and sensory grossly within normal limits. Five out of 5 muscle strength in all muscle groups. Normal speech. Results - Labs CBC & Chem 7: 11/03/17 09:28 11/03/17 09:28 Laboratory Results - last 24 hr 11/03/17 09:28 Prot Corrected Calcium 7.4 L* Total Protein 6.4 D Microbiology 11/02/17 00:00 Blood - Line Aerobic Blood Culture - Preliminary No growth in 1 day 11/02/17 00:00 Blood - Line Anaerobic Blood Culture - Preliminary No growth in 1 day 11/02/17 00:05 Blood - Line Aerobic Blood Culture - Preliminary No growth in 1 day 11/02/17 00:05 Blood - Line Anaerobic Blood Culture - Preliminary No growth in 1 day Assessment and Plan - Assessment (1) Pancreatitis Code(s): K85.90 - Acute pancreatitis without necrosis or infection, unspecified Status: Acute Plan: Likely due to alcohol Improving sepsis Advance diet IV morphine as needed for pain and IV antiemetics (2) EtOH dependence Code(s): F10.20 - Alcohol dependence, uncomplicated Status: Acute Plan: Continue with CIWA protocol and Librium - Plan Discharge Planning: Discharge home 1-2 days
[2017-11-05] MEDS: chlordiazePOXIDE 25 MG Capsule PO SCH (05:11)
[2017-11-05 07:32] VITALS: BP 125/61; PULSE 108; RESP 20; TEMP 100; O2SAT 92
[2017-11-05 07:52] LABS: Hematocrit 40.7 % (39.0-51.0); Hemoglobin 13.9 gm/dL (13.0-17.0); Mean Corpuscular HGB Conc 34.2 % (32.0-36.0); Mean Corpuscular Hemoglobin 32.1 pg (27.0-34.0); Mean Corpuscular Volume 94.1 fL (80.0-100.0); Mean Platelet Volume 8.1 fL (7.0-11.0); Platelet Count 226 th/mm3 (150-450); Red Blood Count 4.32 mil/mm3 (4.50-5.90); Red Cell Distribution Width 12.6 % (11.6-17.2); White Blood Count 16.2 th/mm3 (4.0-11.0)
[2017-11-05 08:20] LABS: Anion Gap 9 meq/L (5-15); Blood Urea Nitrogen 5 mg/dL (7-18); Calcium 7.2 mg/dL (8.5-10.1); Carbon Dioxide 27.1 meq/L (21.0-32.0); Chloride 98 meq/L (98-107); Glomerular Filtration Rate Greater Than 89 mL/min (>89); Glucose,Random 107 mg/dL (74-106); Phosphorus 1.8 mg/dL (2.5-4.9); Sodium 134 meq/L (136-145)
[2017-11-05 09:22] LABS: Total Protein 6.6 g/dL (6.4-8.2)
--- NOTE | 2017-11-05 09:32 | P.DS ---
Date of admission: 11/03/17 03:09 Primary care physician: No Primary Care Physician Brief History from admission: Patient is a 47-year-old gentleman who drinks quite a bit of liquor daily who comes in with severe abdominal pain located in the periumbilical and lower abdomen. It does not seem to radiate. He cannot keep any food or liquids down and finally came to the emergency room for further evaluation and treatment. Patient drinks hard liquor at least every night and has never had any abdominal. The emergency room he is noted to be tachycardic and complaining of 8 out of 10 pain relieved with IV narcotics. Patient is found to have a leukocytosis of 18,000 as well as a lipase of 18,[address] abdomen pelvis which shows patient extending to the small bowel mesentery. This time patient has been recommended for further evaluation and treatment in the hospital due to acute pancreatitis with inability to swallow secondary to severe nausea and vomiting. DS: Diagnosis - Discharge Diagnosis (1) Pancreatitis Status: Acute (2) EtOH dependence Status: Acute DS: Medications - Discharge Medications Prescriptions: chlordiazepoxide HCl 25 mg PO Q8H #10 cap promethazine [Phenergan] 50 mg MA Q4-6H PRN #30 ea PRN Reason: Nausea DS: Summary Hospital Course: Patient was seen and treated for acute pancreatitis. This resolved with bowel rest. His diet was advanced. His elect lites remained stable. Patient required significant hydration but improved. He did have some evidence of withdrawal and was given Librium and Ativan with some improvement - Time Spent with Patient Total time spent providing and/or coordinating discharge services: Less than 30 minutes - Quality: VTE Deep Vein Thrombosis/Pulmonary Embolism Present on Admission: No Exam Vital signs: Vital Signs 11/04/17 11:36 11/04/17 15:08 11/04/17 20:00 Temperature 99.4 F 98.2 F 99.3 F Pulse Rate 90 86 115 H Respiratory Rate 20 20 18 Blood Pressure 130/72 131/80 133/85 Pulse Oximetry 98 98 93 L 11/05/17 00:00 11/05/17 04:00 11/05/17 07:31 Temperature 100.2 F H 100.9 F H 100.0 F H Pulse Rate 119 H 122 H 108 H Respiratory Rate 18 18 20 Blood Pressure 146/83 H 157/92 H 125/61 Pulse Oximetry 93 L 94 L 92 L Intake & Output 11/04/17 11/05/17 11/05/17 18:59 06:59 18:59 Intake Total 3260 / 3260 720 / 720 Output Total 300 / 300 Balance 2960 / 2960 720 / 720 Weight 134.2 kg Intake: IV 2300 / 2300 LR 1000 mL Inj 1,000 ML @ 200 2300 / 2300 mls/hr IV.CONT .Q5H THOR Rx#: [id number] Oral 960 / 960 720 / 720 Output: Urine 300 / 300 Other: # Voids 4 5 # Bowel Movements 1 Narrative: GENERAL: Well-nourished, well-developed patient. SKIN: Warm and dry. HEAD: Normocephalic. EYES: No scleral icterus. No injection or drainage. NECK: Supple, trachea midline. No JVD or lymphadenopathy. CARDIOVASCULAR: Regular rate and rhythm without murmurs, gallops, or rubs. RESPIRATORY: Breath sounds equal bilaterally. No accessory muscle use. GASTROINTESTINAL: Abdomen soft, non-tender, nondistended. MUSCULOSKELETAL: No cyanosis, or edema. BACK: Nontender without obvious deformity. No CVA tenderness. NEUROLOGICAL: Awake and alert. Cranial nerves II through XII intact. Motor and sensory grossly within normal limits. Five out of 5 muscle strength in all muscle groups. Normal speech. Results Procedures completed during hospitalization: None Labs on day of discharge: Labs from last 24 hours 11/05/17 11/05/17 07:40 07:40 WBC 16.2 H RBC 4.32 L Hgb 13.9 D Hct 40.7 MCV 94.1 MCH 32.1 MCHC 34.2 RDW 12.6 Plt Count 226 MPV 8.1 Sodium 134 L Potassium 3.0 L Chloride 98 Carbon Dioxide 27.1 Anion Gap 9 BUN 5 L Creatinine 0.51 L Estimated GFR Greater than 89 Random Glucose 107 H Calcium 7.2 L* Prot Corrected Calcium 7.5 L Phosphorus 1.8 L Total Protein 6.6 Preliminary micro results at discharge 11/02/17 00:00 Aerobic Blood Culture - Preliminary Blood - Line No growth in 1 day Anaerobic Blood Culture - Preliminary No growth in 1 day 11/02/17 00:05 Aerobic Blood Culture - Preliminary Blood - Line No growth in 1 day Anaerobic Blood Culture - Preliminary No growth in 1 day - Impressions ITS Impressions Chest X-Ray 11/02/17 23:43 CONCLUSION: 1. No acute cardiopulmonary abnormality is identified. 2. Questionable 9 mm nodule in the left upper lung zone. If the prior studies cannot be obtained for comparison consider elective follow-up with noncontrast chest CT. Abdomen/Pelvis CT 11/03/17 00:37 CONCLUSION: 1. Peripancreatic inflammatory changes which extend into the small bowel mesentery. There is also a small volume of free fluid in the pelvis. These findings are characteristic of acute pancreatitis. Suggest correlating with appropriate laboratory values. There are no pancreatitis associated complications currently. 2. Hepatomegaly with steatosis. Discharge Plan - Discharge Disposition Patient Disposition: 01 Discharge Home - Discharge Condition Condition: Stable - Discharge Order Discharge Orders: Discharge Order (Routine); Ordered 11/05/17 Ordered By: Marbella Zavaleta - Discharge Details Anticipated Discharge Date: 11/05/17 - Physicians Team Primary Care Provider: Primary Care Pérez,Hali Attending Provider: Marbella Zavaleta
== END 2017-11-05 11:01 | disposition home or self-care (01) ==
LOC: PHED 22:13 → PHEDA 11-03 03:09 → PH3 11-03 12:00
PROVIDERS: ADMIT Hospitalist; ATTEND Hospitalist